=== PATIENT | female | born 1940 | race Caucasian/White ===

== ENCOUNTER 2017-06-11 14:20 | Emergency (ER) | payer MEDICARE, OTHER ==
[~2017-06-11] VITALS: Ht 162.6 cm; Wt 74.4 kg
[~2017-06-11 14:20] MED LIST: ALBUTEROL-200 PUFFS/ IH; ASPIRIN 81MG TA81 MG PO; AVPAK AZITHROM250 MG PO; COUMADIN 5MG TAB5 MG PO; CRESTOR10 MG PO; KEFLEX 500MG.500 MG PO; MEDROL 4MG. DOSE4 MG PO; METAMUCIL MULTI1 CAP PO; NAPROSYN 500MG500 MG PO; NORCO 325 MG-51 TAB PO; OMEPRAZOLE20 MG PO; PRAVASTATIN 40M40 MG PO; PROMETHAZINE5 ML/UDC PO; SYNTHROID 0.1M0.1 MG PO
[2017-06-11] MEDS ORDERED: MEDROL 4MG. DOSE4 MG PO (14:35)
[2017-06-11] MEDS ORDERED: ZITHROMAX Z PA250 MG PO (14:35)
[2017-06-11] MEDS ORDERED: FLONASE 50 MCG16 GM (14:35)
--- NOTE | 2017-06-11 14:36 | Urgent Treatment Center Report ---
History of Present Issue Date/Time Seen by Provider 06/11/17 1430 Visit Reason Pt arrived:Walked Presenting Problem:PT C/O SORE THROAT D/T SINUS DRAINAGE Location if Accident: Onset of symptoms date/time:/ or onset unknown for:MEDICAL HX UNKNOWN Have you (or family members/close friends) recently traveled outside the [place]? N If Yes, where/when: Have you had exposure to infectious disease within the past month? TB? Other? Specify: Patient states that she has had sorethroat and sinus drainage. State that she feels her sinusus area drainng and running down the back of her throat. State that it is making her feel bad and she feels ill and achy all over. State that she is also starting to have pain and pressure in her sinuses but unable to blow anything out as of yet ALLERGIES Coded Allergies: No Known Allergies (01/02/17) Home Medications Active Scripts Albuterol (Albuterol-Hfa Inhaler) 1 PUFF IH BID #1 INH Prov: 10/22/14 Reported Medications Omeprazole (Omeprazole 20MG) 20 MG PO DAILY Levothyroxine Sodium (Synthroid 0.1MG) 75 MG PO DAILY PRAVASTATIN SODIUM (Pravastatin Sodium) 40 MG PO QHS PSYLLIUM HUSK/CA CARBONATE (Metamucil Plus Calcium Capsule) 1 CAP PO DAILY Methylprednisolone (Medrol Dose Scot) 4 MG PO UD PROMETHAZINE W/CODEINE (Promethazine-Codeine Syrup) 5 ML PO Q4HP PRN COUGH Azithromycin (Avpak Azithromycin) 250 MG PO DAILY #6 History Medical History General CAD? No Angina: No SD: No Hypertension? No Hyperlipidemia? Yes CHF? No DVT? No PE? No COPD? No Asthma? No Anemia? No GERD? No Gastric ulcers? No GI Bleed? No Hernia? Yes Thyroid Problems? Yes Hypothyroidism? Yes CVA? Yes Seizures? No Diabetes? No Renal Insuffiency? No UTI? No Stones? No BPH? No GB Disease: No Nephritic Syndrome? No Asplenia? No Hepatitis? No Sickle Cell Disease? No Arthritis? No Migraines? No Cataracts? No Glaucoma? No MRSA? No HIV? No TB? No Anxiety? No Depression? No Cancer? Yes Site: COLON Immunization HX DT/Tetanus 1-4 Years Ago Flu 2012-FSN Pneumonia Received In Past Surgical Hx Previous Surgery?Y TUBAL COLON RESECTION THYROIDECTOMY ATRILA SEPTALDEFECT/CLOSU -RE Family History Family HX Diabetes No CAD No Hypertension No Hyperlipidemia No Cancer Yes TB No Social History Smoking Hx Smoker: Never Smoker Tobacco: No Alcohol Alcohol: No Review of Systems All Other Systems Reviewed and Negative ENT nose pain, nose discharge, nose congestion, throat pain. Respiratory cough Physical Exam Vital Signs Vital Signs Date Time Temp Pulse Resp B/P Pulse O2 O2 Flow FiO2 Ox Delivery Rate 06/11 1426 98.2 81 18 170/73 98 General Appearance Patient appears ill, pale in color Ear, Nose, Throat sinus pain/drainage, tonsillar swelling, throat red, irritated drainage noted in back of throat mild tenderness noted maxillary sinuses Respiratory Status Yes: trachea midline, chest symmetrical, non tender chest. No: respiratory distress. 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 No Departure Departure Time of Disposition 1434 Disposition DC Home or Self Care(routine) Clinical Impression Primary Impression: Upper respiratory infection Qualifiers: URI type: unspecified URI Qualified Code: J06.9 - Acute upper respiratory infection, unspecified Condition STABLE Patient Instructions Cough, DI for Cough -- Adult, DI for Nasal Congestion, Sore Throat Additional Instructions * Monitor Temp. Tylenol and/or Ibuprofen as needed. ER if fever is no less than 101 despite alternating Tylenol and Ibuprofen * Encourage fluids, water, Gatorade, powerade, pedialyte if /toddler/or child * Warm salt water gargles for throat irritation *Warm fluids *Sore throat lozenges *Sleep elevated *humidifier or vaporizer *Flonase 2 sprays each nostril daily but may take 2-3 days to notice improvement with it Follow up IMMEDIATELY for new or worsening of symptoms OR no noticeable improvement over the next 48-72 hours. 911 immediately for any life threatening symptoms such as chest pain or difficulty breathing Discharge Counseling Counseled pt/family regarding diagnosis, medications/RX, home care, follow up needs Prescriptions Current Visit Scripts Azithromycin (Zithromycin (Z-SCOT) 250MG Tab) 250 MG PO DAILY #6 TAB TAKE TWO (2) TABLETS ON DAY 1, THEN ONE (1) TABLET DAY #2 THRU #5 Fluticasone Propionate (Flonase 50 Mcg Nasal [place]) 2 SPRAY NA DAILY #1 BOT Methylprednisolone (Medrol Dose Scot) 4 MG PO UD #1 SCOT TAKE DIRECTED ON PACKAGING at 1436
[2017-06-11 14:44] VITALS: BP 170/73
== END 2017-06-11 14:46 | disposition home or self-care (01) ==
LOC: UTC 14:20
DX: J06.9 Acute upper respiratory infection, unspecified (principal)

== ENCOUNTER 2017-08-01 10:06 | Emergency (ER) | payer MEDICARE, OTHER ==
[~2017-08-01] VITALS: Ht 167.6 cm; Wt 75.8 kg
[~2017-08-01 10:06] MED LIST changes: +FLONASE 50 MCG16 GM; +ZITHROMAX Z PA250 MG PO
--- OUTSIDE RECORDS SUMMARY | 2017-08-01 10:09 | External Medical Summary Rpt | CCD ---
Demographics Preferred Language Irish Marital Status Unknown Worship Affiliation Unknown Race Unknown Ethnic Group Unknown Author Author , HAILEY HART Address Unknown Phone Immunization No patient found.
--- OUTSIDE RECORDS SUMMARY | 2017-08-01 10:09 | External Medical Summary Rpt | CCD ---
Author Author , HAILEY HART Address Unknown Phone [email or web address] Care Team Providers Care Chief Wheelage Clerk Name Role Phone Wilder Garcia Unavailable Unavailable , Wilder Garcia MD Purpose Continuity of Care Document - 05-21-2013 through 2016 Problems Code Diagnosis DOS Provider Status 729.5 729.5 PAIN 05-21-2013 Dl IN LIMB [facility] V10.87 V10.87 HX 05-21-2013 Dl OF THYROID [facility] V12.54 V12.54 05-21-2013 Dl PERSONAL HX [facility] TIA,& [facility] CEREBRAL INFARCTION W/OUT RES DEFICITS Allergies, Adverse Reactions, Alerts Type Allergy to substance Adverse Reaction to Substance Substance Reaction Severity INGREDIENT: NO KNOWN Unknown Unknown - NO KNOWN DRUG ALLERGY Vital Signs 05-21-2013 14:40 Name Value Interpretat Reference Comment ion Range Body 98.2 [degF] Temperature BP 82 mm[Hg] Diastolic BP Systolic 142 mm[Hg] Heart 76 /min Rate/Pulse O2% 99 % Respiratory 20 /min Rate 05-21-2013 12:57 Name Value Interpretat Reference Comment ion Range BP 78 mm[Hg] Diastolic BP Systolic 137 mm[Hg] Heart 72 /min Rate/Pulse O2% 98 % Respiratory 16 /min Rate Results Labs Lab Lab Date Result Refere Interp Status Commen Order Detail nces retati t Range on CK SerPl-cCnc (05-21-2013 13:05) CK 112 U/L 26-192 complet SerPl-c 013 ed Cnc 13:05 Encounters Encounter Start End Date Code Location Performer Type Date Emergency DEIDRA Garcia MD (ER) 3 12:31 3 14:41 [facility]
--- OUTSIDE RECORDS SUMMARY | 2017-08-01 10:09 | External Medical Summary Rpt ---
Author Author HAILEY Raya, HAILEY Raya Organization [employer] Address Unknown Phone Unavailable
--- OUTSIDE RECORDS SUMMARY | 2017-08-01 10:09 | External Medical Summary Rpt | CCD ---
Demographics Preferred Language Korean Marital Status Unknown Gnosticist Affiliation Unknown Race Unknown Ethnic Group Unknown Author Author , HAILEY HART Address Unknown Phone Immunization No patient found.
--- OUTSIDE RECORDS SUMMARY | 2017-08-01 10:09 | External Medical Summary Rpt | CCD ---
Author Author , HAILEY HART Address Unknown Phone [email or web address] Care Team Providers Care Porcelain Enamel Installer Name Role Phone Wilder Garcia Unavailable Unavailable , Wilder Garcia MD Purpose Continuity of Care Document - 05-21-2013 through 2016 Problems Code Diagnosis DOS Provider Status 729.5 729.5 PAIN 05-21-2013 Dl IN LIMB [facility] V10.87 V10.87 HX 05-21-2013 Dl OF THYROID [facility] V12.54 V12.54 05-21-2013 Dl PERSONAL HX [facility] TIA,& [facility] CEREBRAL INFARCTION W/OUT RES DEFICITS Allergies, Adverse [...] Garcia MD (ER) 3 12:31 3 14:41 [facility] er [place]
--- NOTE | 2017-08-01 10:30 | Urgent Treatment Center Report ---
History of Present Issue Date/Time Seen by Provider 08/01/17 1024 Visit Reason Pt arrived:Walked Presenting Problem:PT C/O LIGHT HEADEDNESS AND DIZZINESS Location if Accident: Onset of symptoms date/time:/ or onset unknown for:MEDICAL HX UNKNOWN Have you (or family members/close friends) recently traveled outside the [place]? N If Yes, where/when: Have you had exposure to infectious disease within the past month? TB? Other? Specify: Patient state that she noticed a little earlier while she was cleaning vents that became dizzy. State that when she turned her head or moved real quick it got worse State that she feels a little better now. Denies being ill, denies cough, denies sinus congestion, denies vision changes ALLERGIES Coded Allergies: No Known Allergies (01/02/17) Home Medications Active Scripts Azithromycin (Zithromycin (Z-MANE) 250MG Tab) 250 MG PO DAILY #6 TAB Prov: 06/11/17 Fluticasone Propionate (Flonase 50 Mcg Nasal [place]) 2 SPRAY NA DAILY #1 BOT Prov: 06/11/17 Methylprednisolone (Medrol Dose [place]) 4 MG PO UD #1 MANE Prov: 06/11/17 Albuterol (Albuterol-Hfa Inhaler) 1 PUFF IH BID #1 INH Prov: 10/22/14 Reported Medications Omeprazole (Omeprazole 20MG) 20 MG PO DAILY Levothyroxine Sodium (Synthroid 0.1MG) 75 MG PO DAILY PRAVASTATIN SODIUM (Pravastatin Sodium) 40 MG PO QHS PSYLLIUM HUSK/CA CARBONATE (Metamucil Plus Calcium Capsule) 1 CAP PO DAILY Methylprednisolone (Medrol Dose [place]) 4 MG PO UD PROMETHAZINE W/CODEINE (Promethazine-Codeine Syrup) 5 ML PO Q4HP PRN COUGH Azithromycin (Avpak Azithromycin) 250 MG PO DAILY #6 History Medical History General CAD? No Angina: No AR: No Hypertension? No Hyperlipidemia? Yes CHF? No DVT? No PE? No COPD? No Asthma? No Anemia? No GERD? No Gastric ulcers? No GI Bleed? No Hernia? Yes Thyroid Problems? Yes Hypothyroidism? Yes CVA? Yes Seizures? No Diabetes? No Renal Insuffiency? No UTI? No Stones? No BPH? No GB Disease: No Nephritic Syndrome? No Asplenia? No Hepatitis? No Sickle Cell Disease? No Arthritis? No Migraines? No Cataracts? No Glaucoma? No MRSA? No HIV? No TB? No Anxiety? No Depression? No Cancer? Yes Site: COLON Immunization HX DT/Tetanus 1-4 Years Ago Flu 2012-14FSN Pneumonia Received In Past Surgical Hx Previous Surgery?Y TUBAL COLON RESECTION THYROIDECTOMY ATRILA SEPTALDEFECT/CLOSU -RE Family History Family HX Diabetes No CAD No Hypertension No Hyperlipidemia No Cancer Yes TB No Social History Smoking Hx Smoker: Never Smoker Tobacco: No Alcohol Alcohol: No Review of Systems All Other Systems Reviewed and Negative Psychiatric/Neurological other (dizziness) Physical Exam Vital Signs Vital Signs Date Time Temp Pulse Resp B/P Pulse O2 O2 Flow FiO2 Ox Delivery Rate 08/01 1013 98.1 70 18 165/79 97 General Appearance normal appearance, WD/WN, no apparent distress Ear, Nose, Throat Bilateral ears no redness Tm clear buldging fluid noted Neck normal inspection, non-tender Respiratory Status Yes: trachea midline, chest symmetrical, non tender chest. No: respiratory distress. Lung Sounds bilateral: normal breath sounds, lungs clear. Cardiovascular normal exam Neurologic alert, normal exam, oriented x 3 Medical Decision Making LABS/Meds/Orders Pt receiving controlled substance in ED? No Results/Orders Current Medication Orders Sig/Patricia Start time Last Medication Dose Route Stop Time Status Admin Meclizine HCl 0 .STK-MED ONE 08/01 1031 DC .ROUTE Meclizine HCl 12.5 MG ONCE ONE 08/01 1030 DC 08/01 PO 08/01 1031 1034 Progress [facility] Progress Notes Comment Patient state that she is feeling much better and no longer feeling dizzy Patient educated on medication and to follow up with family doctor for further evaluation and if MD wishes to continue medication Departure Departure Time of Disposition 1052 Disposition DC Home or Self Care(routine) Clinical Impression Primary Impression: Vertigo Condition STABLE Referrals Rogelio Ochoa MD (Family): 2 Days-Call Office Patient Instructions DI for Vertigo, Vertigo Additional Instructions Take medication as prescribed Follow up with family doctor Return if needed Make slow position changes and use caution with medication until you see how it is going to affect you If you began having any further complications, vision changes or worsening of symptoms go straight to the ER Discharge Counseling Counseled pt/family regarding diagnosis, test results, medications/RX, home care Prescriptions Current Visit Scripts MECLIZINE HYDROCHLORIDE (Meclizine HCl) 12.5 MG PO BID #60 TAB Fluticasone Propionate (Flonase 50 Mcg Nasal [place]) 2 SPRAY NA DAILY #1 BOT at 1100
[2017-08-01] MEDS ORDERED: MECLIZINE12.5 MG PO (10:52)
[2017-08-01] MEDS ORDERED: FLONASE 50 MCG16 GM (10:52)
[2017-08-01 11:03] VITALS: BP 165/79
== END 2017-08-01 11:04 | disposition home or self-care (01) ==
LOC: UTC 10:06
DX: R42 Dizziness and giddiness (principal); E78.5 Hyperlipidemia, unspecified; E03.9 Hypothyroidism, unspecified; Z79.52 Long term (current) use of systemic steroids; Z79.899 Other long term (current) drug therapy

== ENCOUNTER → 2017-09-22 | Outpatient (CLI) | payer MEDICARE, OTHER ==
[~2017-09-22] MED LIST changes: +APAP ARTHRITIS650 MG PO; +MECLIZINE12.5 MG PO
--- NOTE | 2017-09-22 15:22 | RADIOLOGY REPORT PS360 ---
EXAM: LUMBAR SPINE 5 VIEWS HISTORY: ACUTE RT SIDE LOW BACK PAIN ORDERING PHYSICIAN: Rogelio Ochoa MD PATIENT AGE: 77 years COMPARISON: None FINDINGS: There is normal alignment. Severe degenerative disc disease is present at L3-L4 with moderate degenerative disc disease at L4-L5 and L5-S1. Severe facet hypertrophic changes are present at L4-L5 and L5-S1. No acute fracture or dislocation. No lytic or blastic change. Prominent facet osteophytes are noted on the right at L4, L5, and S1. A 2 mm calcific density overlies the mid aspect of the left kidney IMPRESSION: 1. No acute fracture. 2. 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 Possible left nephrolithiasis
== END ==
LOC: RAD 15:02
DX: M54.5 Low back pain (principal)